=== PATIENT | male | born 1955 | race African-American/Black ===

== ENCOUNTER → 2017-10-15 | Outpatient (REF) ==
--- NOTE | 2017-10-15 16:14 | DI ---
EXAM: Two views of the chest. History: Employment physical examination. Comparison: Chest radiograph 10/09/2014 Findings: Heart size is within normal limits. No focal consolidation. No appreciable pleural fluid and no pneumothorax. Prominent aortic arch again noted. No acute osseous abnormalities. Impression: No acute cardiopulmonary process. No change compared to the prior study.
== END ==
LOC: RAD 13:29
DX: Z02.89 Encounter for other administrative examinations (principal)